=== PATIENT | female | born 1995 | race Caucasian/White ===

== ENCOUNTER 2017-10-14 09:29 | Emergency (ER) | payer SELFPAY ==
[~2017-10-14] VITALS: Ht 154.9 cm; Wt 69.0 kg
[~2017-10-14 09:29] MED LIST: AMOX875 PO; MMW SSP
[2017-10-14 09:32] VITALS: BP 148/97; PULSE 82; RESP 14; TEMP 98.5; O2SAT 99
[2017-10-14] MEDS ORDERED: [UNRECOGNIZED DRUG - CODE] PO (09:46)
[2017-10-14] MEDS ORDERED: SODIUM CHLOR 0.9% 1000 ML INJ 1,000 ML IV ONE (10:00)
[2017-10-14] MEDS ORDERED: KETOROLAC TROMETHAMINE 30 MG/ML (IVP) VIAL IV PUSH ONE (10:00)
[2017-10-14 10:15] LABS: AUTOMATED NEUTROPHIL # 7.3 TH/MM3 (1.8-7.7); BASOPHIL # 0.1 TH/MM3 (0-0.2); BASOPHIL % 0.7 % (0.0-2.0); EOSINOPHIL # 0.2 TH/MM3 (0-0.4); HEMATOCRIT 42.1 % (35.0-46.0); HEMOGLOBIN 14.5 GM/DL (11.6-15.3); LYMPH % 18.5 % (9.0-44.0); LYMPHOCYTE # 1.9 TH/MM3 (1.0-4.8); MEAN CELL VOLUME 85.3 FL (80.0-100.0); MEAN CORPUSCULAR HEMOGLOBIN 29.4 PG (27.0-34.0); MEAN CORPUSCULAR HGB CONC 34.5 % (32.0-36.0); MEAN PLATELET VOLUME 9.5 FL (7.0-11.0); MONO % 5.9 % (0.0-8.0); MONOCYTE # 0.6 TH/MM3 (0-0.9); NEUT % 72.9 % (16.0-70.0); PLATELET COUNT 204 TH/MM3 (150-450); RED BLOOD COUNT 4.93 MIL/MM3 (4.00-5.30); RED CELL DISTRIBUTION WIDTH 13.1 % (11.6-17.2)
[2017-10-14] MEDS ORDERED: IOHEXOL 350 MG/ML 10 ML VIAL (for RAD DIAG) IVCONTRAST ONE (10:19)
[2017-10-14 10:31] LABS: ALBUMIN 3.9 GM/DL (3.4-5.0); AST (GOT) 12 U/L (15-37); BICARBONATE 24.2 MEQ/L (21.0-32.0); BLOOD UREA NITROGEN 7 MG/DL (7-18); CALCIUM 8.8 MG/DL (8.5-10.1); CHLORIDE 109 MEQ/L (98-107); CREATININE 0.75 MG/DL (0.50-1.00); GLOMERULAR FILTRATION RATE 96 ML/MIN (>89); GLUCOSE,RANDOM 84 MG/DL (74-106); SODIUM (NA) 139 MEQ/L (136-145)
[2017-10-14 10:32] LABS: ALT (GPT) 12 U/L (10-53)
[2017-10-14 10:34] LABS: ALKALINE PHOSPHATASE 67 U/L (45-117); TOTAL BILIRUBIN ADULT 0.2 MG/DL (0.2-1.0); TOTAL PROTEIN 7.5 GM/DL (6.4-8.2)
--- NOTE | 2017-10-14 10:58 | RADRPT ---
EXAM DATE/TIME: 10/14/2017 10:16 [place] COMPARISON: CT ABDOMEN & PELVIS W CONTRAST, November 28, 2009, 3:31. INDICATIONS : Lower abdominal pain. IV CONTRAST: 90 cc Omnipaque 350 (iohexol) IV ORAL CONTRAST: No oral contrast ingested. RADIATION DOSE: 8.27 CTDIvol (mGy) MEDICAL HISTORY : Crohn's disease. SURGICAL HISTORY : None. ENCOUNTER: Initial ACUITY: 1 day PAIN SCALE: 6/10 LOCATION: Bilateral lower quadrant TECHNIQUE: Volumetric scanning of the abdomen and pelvis was performed. Using automated exposure control and ad justment of the mA and/or kV according to patient size, radiation dose was kept as low as reasonably achievable to obtain optimal diagnostic quality images. DICOM format image data is available electro nically for review and comparison. FINDINGS: LOWER LUNGS: The visualized lower lungs are clear. LIVER: Homogeneous density without lesion. There is no dilation of the biliary tree. No calcified gallston es. SPLEEN: Normal size without lesion. PANCREAS: Within normal limits. KIDNEYS: Normal in size and shape. There is no mass, stone or hydronephrosis. ADRENAL GLANDS: Within normal limits. VASCULAR: There is no aortic aneurysm. BOWEL/MESENTERY: The stomach, small bowel, and colon demonstrate no acute abnormality. There is no free intraperitone al air or fluid. The appendix appears normal. ABDOMINAL WALL: Within normal limits. RETROPERITONEUM: There is no lymphadenopathy. BLADDER: No wall thickening or mass. REPRODUCTIVE: Within normal limits. INGUINAL: There is no lymphadenopathy or hernia. MUSCULOSKELETAL: Within normal limits for patient age. CONCLUSION: No acute disease. Julián Su MD on October 14, 2017 at 10:53 Board Certified Radiologist. This report was verified electronically.
[2017-10-14 11:01] VITALS: RESP 16
[2017-10-14 11:39] LABS: BILIRUBIN, URINE NEG (NEG); BLOOD, URINE SMALL (NEG); GLUCOSE,URINE NEG (NEG); KETONE, URINE NEG (NEG); NITRITE,URINE NEG (NEG); PH, URINE 7.5 (5.0-8.5); SQUAMOUS EPITHELIAL CELL URINE <1 /hpf (0-5); URINE COLOR LIGHT-YELLOW (YELLW/STRAW); URINE LEUKOCYTE ESTERASE NEG (NEG)
--- NOTE | 2017-10-14 12:06 | PD ---
HPI Chief Complaint: GI Complaint Time Seen by Provider: 09:42 Travel History International Travel<30 days: No Contact w/Intl Traveler<30days: No Traveled to known affect area: No History of Present Illness HPI Patient is a 22 year old female who comes in complaining of lower abdominal pain that started yesterday. She says she took Pamprin and it got worse. She says she thought she was , but then she started her period and has had negative tests at home. She denies nausea or vomiting. She denies any dysuria. She says she did had some discharge, but now she is is bleeding. She is sexually active, her partner is not having any symptoms. Severity is mild to moderate. PFSH Past Medical History Hx Anticoagulant Therapy: No Cancer: No Cardiovascular Problems: No Chemotherapy: No Cerebrovascular Accident: No Diabetes: No Diminished Hearing: No Gastrointestinal Disorders: Yes (crohns disease) Glaucoma: Yes Hepatitis: No Hiatal Hernia: No Medical other: Yes (CROHN'S DISEASE, SCOLIOSIS,BEING TEST FOR GLAUCOMA) Musculoskeletal: Yes (scoliosis) Respiratory: No Immunizations Current: Yes Migraines: Yes Thyroid Disease: No Tetanus Vaccination: > 5 Years Influenza Vaccination: No ?: Unknown LMP: not sure : 0 Past Surgical History Abdominal Surgery: No Cardiac Surgery: No Ear Surgery: No Endocrine Surgery: No Eye Surgery: No Genitourinary Surgery: No Gynecologic Surgery: No Hysterectomy: No Neurologic Surgery: No Oral Surgery: No Thoracic Surgery: No Other Surgery: Yes Social History Alcohol Use: No Tobacco Use: No Substance Use: No Allergies-Medications (Allergen,Severity, Reaction): Coded Allergies: No Known Allergies (Verified Adverse Reaction, Unknown, 10/14/17) Reported Meds & Prescriptions Reported Meds & Active Scripts Active Reported Pamprin Max (Jiclgbs-Ikggbjnuihrti-Kwaoslaa) 250-250-65 Mg Tab 2 Tab PO DAILY PRN Review of Systems Except as stated in HPI: all other systems reviewed are Neg General / Constitutional: No: Fever, Chills HENT: No: Headaches, Lightheadedness Cardiovascular: No: Chest Pain or Discomfort Respiratory: No: Shortness of Breath Gastrointestinal: Positive: Abdominal Pain, No: Nausea, Vomiting Genitourinary: Positive: Vaginal Bleeding Skin: No Rash, No Change in Pigmentation Neurologic: No: Weakness, Dizziness Physical Exam Narrative GENERAL: Awake and alert, no acute distress. SKIN: Focused skin assessment warm/dry. No wounds or signs of infection. HEAD: Atraumatic. Normocephalic. EYES: Pupils equal and round. No scleral icterus. ENT: Mucous membranes pink and moist. NECK: Trachea midline. No JVD. CARDIOVASCULAR: Regular rate and rhythm. No murmur appreciated. RESPIRATORY: No accessory muscle use. Clear to auscultation. Breath sounds equal bilaterally. GASTROINTESTINAL: Abdomen soft, nondistended. Minimal tenderness to the lower abdomen, no rebound or guarding. : Exam performed in the presence of a nurse. There is blood present, no cervical lesions, no CMT. MUSCULOSKELETAL: No obvious deformities. No clubbing. No cyanosis. No edema. NEUROLOGICAL: Awake and alert. No obvious cranial nerve deficits. Motor grossly within normal limits. Normal speech. PSYCHIATRIC: Appropriate mood and affect; insight and judgment normal. Data Data Last Documented VS Vital Signs Date Time Temp Pulse Resp B/P (MAP) Pulse Ox O2 Delivery O2 Flow Rate FiO2 10/14/17 11:01 16 10/14/17 09:32 98.5 82 148/97 (114) 99 Room Air Orders Orders Complete Blood Count With Diff (10/14/17 09:55) Comprehensive Metabolic Panel (10/14/17 09:55) Urinalysis - C+S If Indicated (10/14/17 09:55) Ed Urine Pregnancytest Poc (10/14/17 09:55) Ct Abd/Pel W Iv Contrast(Rout) (10/14/17 ) Sodium Chlor 0.9% 1000 Ml Inj (Ns 1000 M (10/14/17 10:00) Ketorolac Inj (Toradol Inj) (10/14/17 10:00) Iohexol 350 Inj (Omnipaque 350 Inj) (10/14/17 10:19) Labs Laboratory Tests Test 10/14/17 10:00 10/14/17 11:11 White Blood Count 10.0 TH/MM3 Red Blood Count 4.93 MIL/MM3 Hemoglobin 14.5 GM/DL Hematocrit 42.1 % Mean Corpuscular Volume 85.3 FL Mean Corpuscular Hemoglobin 29.4 PG Mean Corpuscular Hemoglobin Concent 34.5 % Red Cell Distribution Width 13.1 % Platelet Count 204 TH/MM3 Mean Platelet Volume 9.5 FL Neutrophils (%) (Auto) 72.9 % Lymphocytes (%) (Auto) 18.5 % Monocytes (%) (Auto) 5.9 % Eosinophils (%) (Auto) 2.0 % Basophils (%) (Auto) 0.7 % Neutrophils # (Auto) 7.3 TH/MM3 Lymphocytes # (Auto) 1.9 TH/MM3 Monocytes # (Auto) 0.6 TH/MM3 Eosinophils # (Auto) 0.2 TH/MM3 Basophils # (Auto) 0.1 TH/MM3 CBC Comment DIFF FINAL Differential Comment Blood Urea Nitrogen 7 MG/DL Creatinine 0.75 MG/DL Random Glucose 84 MG/DL Total Protein 7.5 GM/DL Albumin 3.9 GM/DL Calcium Level 8.8 MG/DL Alkaline Phosphatase 67 U/L Aspartate Amino Transf (AST/SGOT) 12 U/L Alanine Aminotransferase (ALT/SGPT) 12 U/L Total Bilirubin 0.2 MG/DL Sodium Level 139 MEQ/L Potassium Level 4.0 MEQ/L Chloride Level 109 MEQ/L Carbon Dioxide Level 24.2 MEQ/L Anion Gap 6 MEQ/L Estimat Glomerular Filtration Rate 96 ML/MIN Urine Color LIGHT-YELLOW Urine Turbidity CLEAR Urine pH 7.5 Urine Specific [place] 1.027 Urine Protein NEG mg/dL Urine Glucose (UA) NEG mg/dL Urine Ketones NEG mg/dL Urine Occult Blood SMALL Urine Nitrite NEG Urine Bilirubin NEG Urine Urobilinogen LESS THAN 2.0 MG/DL Urine Leukocyte Esterase NEG Urine RBC 1 /hpf Urine Squamous Epithelial Cells <1 /hpf Microscopic Urinalysis Comment CULT NOT INDICATED MDM Medical Decision Making Medical Screen Exam Complete: Yes Emergency Medical Condition: Yes Medical Record Reviewed: Yes Differential Diagnosis Menstrual cramps vs ovarian cyst vs appendicitis Narrative Course Patient is a 22-year-old female who comes in complaining of lower abdominal pain. Exam shows minimal tenderness. IV established, labs sent. Labs show no acute abnormalities. CT abdomen pelvis performed shows no acute abnormalities. Patient given Toradol and fluids. She reports feeling better. Last 24 hours Impressions Abdomen/Pelvis CT 10/14/17 0000 Signed Impressions: Service Date/Time: Monday, October 14, 2017 10:16 - CONCLUSION: No acute disease. Julián Su MD Patient advised to take ibuprofen or Aleve as needed for her symptoms. This is likely menstrual cramps. She is advised follow-up with gynecology. Advised return to the ED as needed for any worsening symptoms. Diagnosis Primary Impression: Menstrual cramps Patient Instructions: Dysmenorrhea (ED), General Instructions Additional Instructions: Take ibuprofen or Aleve as needed for pain. Drink plenty of fluids. Follow-up with gynecology. Return to the ED as needed for any worsening symptoms. Disposition: 01 DISCHARGE HOME Condition: Stable Katharina Mann MD Oct 14, 2017 12:06
[2017-10-14 12:20] VITALS: BP 124/78; TEMP 97.8
== END 2017-10-14 12:20 | disposition home or self-care (01) ==
LOC: NEPC 09:29
DX: N94.6 Dysmenorrhea, unspecified (principal); K50.90 Crohn's disease, unspecified, without complications
CPT/HCPCS: 74177; 80053; 81001; 84703; 85025; 96361; 96374; 99284; J1885; J7030; Q9967

== ENCOUNTER 2018-02-06 10:27 | Emergency (ER) | payer OTHER ==
[~2018-02-06] VITALS: Ht 154.9 cm; Wt 74.4 kg
[~2018-02-06 10:27] MED LIST changes: -AMOX875 PO; -MMW SSP; +[UNRECOGNIZED DRUG - CODE] PO
[2018-02-06 10:42] VITALS: BP 119/68; PULSE 77; RESP 16; TEMP 98.8; O2SAT 98
[2018-02-06] MEDS ORDERED: PREN29TA PO (11:01)
[2018-02-06 11:23] LABS: AUTOMATED NEUTROPHIL # 5.2 TH/MM3 (1.8-7.7); BASOPHIL % 0.4 % (0.0-2.0); EOSINOPHIL # 0.2 TH/MM3 (0-0.4); EOSINOPHIL % 2.3 % (0.0-4.0); HEMATOCRIT 40.2 % (35.0-46.0); HEMOGLOBIN 13.8 GM/DL (11.6-15.3); LYMPH % 21.1 % (9.0-44.0); LYMPHOCYTE # 1.5 TH/MM3 (1.0-4.8); MEAN CORPUSCULAR HEMOGLOBIN 29.5 PG (27.0-34.0); MEAN CORPUSCULAR HGB CONC 34.3 % (32.0-36.0); MEAN PLATELET VOLUME 9.4 FL (7.0-11.0); MONO % 5.2 % (0.0-8.0); MONOCYTE # 0.4 TH/MM3 (0-0.9); PLATELET COUNT 218 TH/MM3 (150-450); RED BLOOD COUNT 4.68 MIL/MM3 (4.00-5.30); RED CELL DISTRIBUTION WIDTH 12.1 % (11.6-17.2); WHITE BLOOD COUNT 7.3 TH/MM3 (4.0-11.0)
[2018-02-06 11:24] LABS: BILIRUBIN, URINE NEG (NEG); BLOOD, URINE NEG (NEG); GLUCOSE,URINE NEG (NEG); KETONE, URINE NEG (NEG); NITRITE,URINE NEG (NEG); PH, URINE 5.5 (5.0-8.5); URINE COLOR YELLOW (YELLW/STRAW); URINE LEUKOCYTE ESTERASE NEG (NEG)
--- NOTE | 2018-02-06 11:24 | PD ---
HPI Chief Complaint: Related Problem Time Seen by Provider: 11:03 Travel History International Travel<30 days: No Contact w/Intl Traveler<30days: No Traveled to known affect area: No History of Present Illness HPI 22-year-old female presented ER for evaluation of possible . Patient had multiple tests at home that way are positive, she went to a for the ultrasound clinic to get the free ultrasound for the baby and the critical power install technician told her that she is unable to see an intrauterine , patient has no vaginal bleeding or discharge, she has no fever or chills or night sweats she has no abdominal pain. Patient is , no previous surgeries , no history of STDs. PFSH Past Medical History Hx Anticoagulant Therapy: No Cancer: No Cardiovascular Problems: No Chemotherapy: No Cerebrovascular Accident: No Diabetes: No Diminished Hearing: No Gastrointestinal Disorders: Yes (crohns disease) Glaucoma: Yes Hepatitis: No Hiatal Hernia: No Musculoskeletal: Yes (scoliosis) Respiratory: No Immunizations Current: Yes Migraines: Yes Thyroid Disease: No Influenza Vaccination: No ?: LMP: 12/03/17 : 1 Para: 0 Miscarriage: 0 : 0 Past Surgical History Abdominal Surgery: No Cardiac Surgery: No Ear Surgery: No Endocrine Surgery: No Eye Surgery: No Genitourinary Surgery: No Gynecologic Surgery: No Hysterectomy: No Neurologic Surgery: No Oral Surgery: No Thoracic Surgery: No Other Surgery: Yes Social History Alcohol Use: No Tobacco Use: No Substance Use: No Allergies-Medications (Allergen,Severity, Reaction): Coded Allergies: No Known Allergies (Verified Adverse Reaction, Unknown, 02/06/18) Reported Meds & Prescriptions Reported Meds & Active Scripts Active Reported Plus Iron 29-1 mg ( Vit-Iron Carbonyl) 29 Mg Iron-1 Mg Tab 1 Tab PO DAILY Review of Systems Except as stated in HPI: all other systems reviewed are Neg Physical Exam Narrative GENERAL: Alert oriented 3 no acute distress. SKIN: Focused skin assessment warm/dry. HEAD: Atraumatic. Normocephalic. EYES: Pupils equal and round. No scleral icterus. No injection or drainage. ENT: No nasal bleeding or discharge. Mucous membranes pink and moist. NECK: Trachea midline. No JVD. CARDIOVASCULAR: Regular rate and rhythm. No murmur appreciated. RESPIRATORY: No accessory muscle use. Clear to auscultation. Breath sounds equal bilaterally. GASTROINTESTINAL: Abdomen soft, non-tender, nondistended. Hepatic and splenic margins not palpable. MUSCULOSKELETAL: No obvious deformities. No clubbing. No cyanosis. No edema. NEUROLOGICAL: Awake and alert. No obvious cranial nerve deficits. Motor grossly within normal limits. Normal speech. PSYCHIATRIC: Appropriate mood and affect; insight and judgment normal. Data Data Last Documented VS Vital Signs Date Time Temp Pulse Resp B/P (MAP) Pulse Ox O2 Delivery O2 Flow Rate FiO2 02/06/18 12:56 73 16 118/63 (81) 99 02/06/18 10:42 98.8 Orders Orders Urinalysis - C+S If Indicated (02/06/18 11:08) Complete Blood Count With Diff (02/06/18 11:08) Comprehensive Metabolic Panel (02/06/18 11:08) Beta Hcg (Quant/Titer) (02/06/18 11:15) Ed Discharge Order (02/06/18 12:37) Labs Laboratory Tests Test 02/06/18 10:50 02/06/18 11:15 Urine Color YELLOW Urine Turbidity CLEAR Urine pH 5.5 Urine Specific [place] GREATER/EQUAL 1.030 Urine Protein NEG mg/dL Urine Glucose (UA) NEG mg/dL Urine Ketones NEG mg/dL Urine Occult Blood NEG Urine Nitrite NEG Urine Bilirubin NEG Urine Urobilinogen 0.2 MG/DL Urine Leukocyte Esterase NEG Urine WBC 0-2 /hpf Urine Squamous Epithelial Cells 6-8 /hpf Urine Amorphous Sediment FEW Microscopic Urinalysis Comment CULT NOT INDICATED White Blood Count 7.3 TH/MM3 Red Blood Count 4.68 MIL/MM3 Hemoglobin 13.8 GM/DL Hematocrit 40.2 % Mean Corpuscular Volume 86.0 FL Mean Corpuscular Hemoglobin 29.5 PG Mean Corpuscular Hemoglobin Concent 34.3 % Red Cell Distribution Width 12.1 % Platelet Count 218 TH/MM3 Mean Platelet Volume 9.4 FL Neutrophils (%) (Auto) 71.0 % Lymphocytes (%) (Auto) 21.1 % Monocytes (%) (Auto) 5.2 % Eosinophils (%) (Auto) 2.3 % Basophils (%) (Auto) 0.4 % Neutrophils # (Auto) 5.2 TH/MM3 Lymphocytes # (Auto) 1.5 TH/MM3 Monocytes # (Auto) 0.4 TH/MM3 Eosinophils # (Auto) 0.2 TH/MM3 Basophils # (Auto) 0.0 TH/MM3 CBC Comment DIFF FINAL Differential Comment Blood Urea Nitrogen 7 MG/DL Creatinine 0.70 MG/DL Random Glucose 106 MG/DL Total Protein 7.3 GM/DL Albumin 3.6 GM/DL Calcium Level 8.6 MG/DL Alkaline Phosphatase 61 U/L Aspartate Amino Transf (AST/SGOT) 8 U/L Alanine Aminotransferase (ALT/SGPT) 21 U/L Total Bilirubin 0.3 MG/DL Sodium Level 138 MEQ/L Potassium Level 3.8 MEQ/L Chloride Level 106 MEQ/L Carbon Dioxide Level 24.6 MEQ/L Anion Gap 7 MEQ/L Estimat Glomerular Filtration Rate 104 ML/MIN Human Chorionic Gonadotropin, Quant [id number] MIU/ML [facility] Medical Decision Making Medical Screen Exam Complete: Yes Emergency Medical Condition: Yes Differential Diagnosis IUP, ectopic , UTI, cystitis. Narrative Course 22-year-old female presented ER for evaluation of . Patient has no abdominal pain or any vaginal bleeding, labs are within [place] limits, [place] [address]. Given the fact that patient has no pain nor any vaginal bleeding or discharge the patient to have ultrasound as an outpatient and they give her the name of OB doctor to follow-up with and advised her to take vitamins meanwhile if she ever develop pain or vaginal bleeding or any other symptoms she will have to come today for further evaluation. Laboratory Tests Test 02/06/18 10:50 02/06/18 11:15 Urine Color YELLOW Urine Turbidity CLEAR Urine pH 5.5 Urine Specific [place] GREATER/EQUAL 1.030 Urine Protein NEG mg/dL Urine Glucose (UA) NEG mg/dL Urine Ketones NEG mg/dL Urine Occult Blood NEG Urine Nitrite NEG Urine Bilirubin NEG Urine Urobilinogen 0.2 MG/DL Urine Leukocyte Esterase NEG Urine WBC 0-2 /hpf Urine Squamous Epithelial Cells 6-8 /hpf Urine Amorphous Sediment FEW Microscopic Urinalysis Comment CULT NOT INDICATED White Blood Count 7.3 TH/MM3 Red Blood Count 4.68 MIL/MM3 Hemoglobin 13.8 GM/DL Hematocrit 40.2 % Mean Corpuscular Volume 86.0 FL Mean Corpuscular Hemoglobin 29.5 PG Mean Corpuscular Hemoglobin Concent 34.3 % Red Cell Distribution Width 12.1 % Platelet Count 218 TH/MM3 Mean Platelet Volume 9.4 FL Neutrophils (%) (Auto) 71.0 % Lymphocytes (%) (Auto) 21.1 % Monocytes (%) (Auto) 5.2 % Eosinophils (%) (Auto) 2.3 % Basophils (%) (Auto) 0.4 % Neutrophils # (Auto) 5.2 TH/MM3 Lymphocytes # (Auto) 1.5 TH/MM3 Monocytes # (Auto) 0.4 TH/MM3 Eosinophils # (Auto) 0.2 TH/MM3 Basophils # (Auto) 0.0 TH/MM3 CBC Comment DIFF FINAL Differential Comment Blood Urea Nitrogen 7 MG/DL Creatinine 0.70 MG/DL Random Glucose 106 MG/DL Total Protein 7.3 GM/DL Albumin 3.6 GM/DL Calcium Level 8.6 MG/DL Alkaline Phosphatase 61 U/L Aspartate Amino Transf (AST/SGOT) 8 U/L Alanine Aminotransferase (ALT/SGPT) 21 U/L Total Bilirubin 0.3 MG/DL Sodium Level 138 MEQ/L Potassium Level 3.8 MEQ/L Chloride Level 106 MEQ/L Carbon Dioxide Level 24.6 MEQ/L Anion Gap 7 MEQ/L Estimat Glomerular Filtration Rate 104 ML/MIN Human Chorionic Gonadotropin, Quant [id number] MIU/ML Diagnosis Primary Impression: Early stage of Referrals: [facility] Additional Instructions: Follow-up with OB and return here if symptoms change or do not improve. Disposition: 01 DISCHARGE HOME Condition: Stable Dionte Samaniego MD Feb 06, 2018 11:24
[2018-02-06 11:29] LABS: AMORPHOUS SEDIMENT, URINE FEW; WBC, URINE 0-2 /hpf (0-5)
[2018-02-06 11:51] LABS: CHLORIDE 106 MEQ/L (98-107); SODIUM (NA) 138 MEQ/L (136-145)
[2018-02-06 11:54] LABS: CALCIUM 8.6 MG/DL (8.5-10.1)
[2018-02-06 11:55] LABS: ALBUMIN 3.6 GM/DL (3.4-5.0); BICARBONATE 24.6 MEQ/L (21.0-32.0); BLOOD UREA NITROGEN 7 MG/DL (7-18); GLUCOSE,RANDOM 106 MG/DL (74-106)
[2018-02-06 11:58] LABS: ALT (GPT) 21 U/L (10-53); AST (GOT) 8 U/L (15-37); GLOMERULAR FILTRATION RATE 104 ML/MIN (>89)
[2018-02-06 11:59] LABS: TOTAL BILIRUBIN ADULT 0.3 MG/DL (0.2-1.0); TOTAL PROTEIN 7.3 GM/DL (6.4-8.2)
[2018-02-06 12:01] LABS: ALKALINE PHOSPHATASE 61 U/L (45-117)
[2018-02-06 12:56] VITALS: BP 118/63
== END 2018-02-06 13:02 | disposition home or self-care (01) ==
LOC: PHED 10:27
DX: Z34.01 Encounter for supervision of normal first pregnancy, first trimester (principal); K50.90 Crohn's disease, unspecified, without complications; M41.9 Scoliosis, unspecified; H40.9 Unspecified glaucoma
CPT/HCPCS: 80053; 81001; 84702; 85025; 99283

== ENCOUNTER 2018-02-17 04:49 | Observation (INO) ==
[2018-02-17] MEDS ORDERED: Sodium Chlor 0.9% Inj 500 ML IV.SIG ONE (15:32)
[2018-02-17] MEDS ORDERED: Sod Chloride 0.9% Inj 1,000 ML OTHER SCH (15:45)
[2018-02-18] MEDS ORDERED: Sodium Chlor 0.9% Inj 500 ML IV.SIG PRN (03:08)
[2018-02-18] MEDS ORDERED: Sod Chloride 0.9% Inj 1,000 ML IV.CONT SCH (03:15)
[2018-02-18 11:16] LABS: Hematocrit 34.5 % (35.0-46.0); Hemoglobin 11.8 gm/dL (11.6-15.3)
--- NOTE | 2018-02-18 12:13 | P.PN ---
Subjective Interval history: No acute events overnight. She reports minimal bleeding and no abdominal pain or tenderness. No shortness of breath or chest pain.No nausea or vomiting Physical Exam Vital signs: Vital Signs 02/18/18 03:48 02/18/18 07:59 02/18/18 08:15 Temperature 98.0 F 98.0 F Pulse Rate 86 89 Respiratory Rate 16 12 16 Blood Pressure 102/55 L 107/57 L Pulse Oximetry 99 98 Intake & Output 02/17/18 02/18/18 02/18/18 18:59 06:59 18:59 Weight 75.5 kg Other: # Voids 1 Narrative: Narrative: General: Well developed female in no acute distress Cardiac: RRR, no M/G/R Pulmonary: CTA bilaterality Abdomen: non-tender to palpation Extremities: non-tender calves, no edema Results - Labs CBC & Chem 7: 02/18/18 11:06 02/17/18 05:10 Laboratory Results - last 24 hr 02/17/18 02/17/18 02/17/18 05:10 05:10 09:24 WBC 17.3 H RBC 4.23 Hgb 12.5 8.9 L D Hct 36.8 MCV 86.9 MCH 29.5 MCHC 34.0 RDW 11.7 Plt Count 246 MPV 9.9 Neut % (Auto) 85.4 H Lymph % (Auto) 8.4 L [place] % (Auto) 3.8 Eos % (Auto) 0.2 Baso % (Auto) 2.2 H Neut # (Auto) 14.7 H Lymph # (Auto) 1.5 [place] # (Auto) 0.7 Eos # (Auto) 0.0 Baso # (Auto) 0.4 H CBC Comment DIFF FINAL Sodium 136 Potassium 3.4 L Chloride 107 Carbon Dioxide 20.6 L Anion Gap 8 BUN 10 Creatinine 0.71 Estimated GFR 102 Random Glucose 156 H Calcium 8.0 L HCG, Quant 2486 H 02/18/18 11:06 WBC RBC Hgb 11.8 Hct 34.5 L MCV MCH MCHC RDW Plt Count MPV Neut % (Auto) Lymph % (Auto) [place] % (Auto) Eos % (Auto) Baso % (Auto) Neut # (Auto) Lymph # (Auto) [place] # (Auto) Eos # (Auto) Baso # (Auto) CBC Comment Sodium Potassium Chloride Carbon Dioxide Anion Gap BUN Creatinine Estimated GFR Random Glucose Calcium HCG, Quant Assessment and Plan - Attending Attestation The patient was seen and examined and I participated in all kwan portions of decision making. Patient with completed Ab from blighted ovum/incomplete Ab. Plan to d/c home today after completes transfusion. All of the patient's questions were answered.
== END 2018-02-18 13:26 | disposition home or self-care (01) ==
LOC: UNDODISOB → NEPHCDU 04:49 → INTOOBSV 06:42 → PHEDA 06:42 → NEPHCDU 15:30
PROVIDERS: ADMIT Obstetrics & Gynecology; ATTEND Obstetrics & Gynecology